=== PATIENT | female | born 1955 | race Caucasian/White ===

== ENCOUNTER → 2020-04-26 15:25 | Outpatient (BNVA) | payer OTHER, SELFPAY | PROVIDERS: PCP Internal Medicine; Visit Provider Surgery ==

== ENCOUNTER 2020-06-14 13:17 | Outpatient (REF) | payer OTHER, SELFPAY ==
[2020-06-14 15:25] LABS: Blood Urea Nitrogen 15 mg/dL (9-16); Creatinine Clr Calc Pharmacy 69.1; Estimated Glomerular Filt Rate > 60
== END 2020-06-14 13:18 | disposition home or self-care (01) ==
LOC: HO.LAB 13:17
PROVIDERS: PCP Internal Medicine; Visit Provider Surgery
DX: R10.30 Lower abdominal pain, unspecified (principal)
CPT/HCPCS: 36415; 82565; 84520

== ENCOUNTER 2020-07-21 08:55 | Outpatient (REF) | payer OTHER, SELFPAY ==
--- NOTE | ~2020-07-21 | US_ITS ---
EXAMINATION: US BILATERAL INGUINAL, LIMITED/FOLLOW UP CLINICAL INFORMATION: Lower abdominal pain. COMPARISON: None. TECHNIQUE: Limited imaging through the right and left inguinal regions as well as below the umbilical was performed. FINDINGS: Imaging through the inguinal region and lower abdominal wall reveals no evidence of hernia. There is active bowel peristalsis noted. US/US pelvic limited IMPRESSION: No evidence of inguinal hernia.
== END 2020-07-21 08:56 | disposition home or self-care (01) ==
LOC: HO.US 08:55
PROVIDERS: Visit Provider Surgery
DX: R10.30 Lower abdominal pain, unspecified (principal); G89.18 Other acute postprocedural pain
CPT/HCPCS: 76857

== ENCOUNTER 2020-07-30 13:05 | Outpatient (REF) | payer OTHER, SELFPAY | END 2020-07-30 13:06 | disposition home or self-care (01) | LOC: HO.LAB 13:05 | PROVIDERS: PCP Internal Medicine; Visit Provider Surgery | DX: Z13.89 Encounter for screening for other disorder (principal) ==

== ENCOUNTER 2020-08-06 07:46 | Outpatient (REF) | payer OTHER, SELFPAY ==
[2020-07-30 15:42] LABS: Blood Urea Nitrogen 11 mg/dL (9-16); Estimated Glomerular Filt Rate > 60
--- NOTE | ~2020-08-06 | CT_ITS ---
EXAMINATION: CT ABDOMEN AND PELVIS WITH CONTRAST CLINICAL INFORMATION: Lower abdominal pain COMPARISON: None TECHNIQUE: Multidetector volumetric images were obtained from the superior aspect of the liver through the pubic symphysis following administration 85 mL of Omnipaque 350 intravenous contrast. Sagittal and coronal reformatted images were obtained on the technologist's workstation. Oral contrast: No This CT examination was performed using dose optimization techniques as appropriate, variously including the following: *Automated exposure control *Adjustment of mA and/or kV according to patient size (this includes techniques or standardized protocols for targeted exams where dose is matched to indication/reason for exam; i.e. extremities or head) *Use of iterative reconstruction technique DLP: 333 mGy-cm FINDINGS: LUNG BASES: The visualized lung bases are unremarkable. LIVER, GALLBLADDER, AND BILIARY TREE: There are multiple hypoattenuating liver lesions, many of which measures simple fluid density and are compatible with cysts. In addition, there may be some smaller septated cysts, and additional lesions that are too small to characterize. At the posteromedial aspect of the right hepatic lobe, there is a heterogeneous hyperattenuating region with central hypoattenuation which may represent a focally dilated duct or grouping of cysts. Overall, this measures approximately 3.4 x 2.4 x 3.9 cm and is of uncertain etiology. This may be an atypical hemangioma. The gallbladder is unremarkable with no evidence of radiopaque gallstones, gallbladder wall thickening, or obvious pericholecystic inflammatory changes. PANCREAS: Unremarkable. SPLEEN: Unremarkable. ADRENAL GLANDS: Unremarkable. KIDNEYS AND URETERS: The kidneys are normal in size, shape, and attenuation. No hydronephrosis, hydroureter, or calculi seen. No perinephric stranding. BLADDER: The urinary bladder appears thick-walled, either due to underdistention or inflammation. GASTROINTESTINAL TRACT: There is circumferential wall thickening of the distal sigmoid and rectum which may be inflammatory. There is a small amount of free pelvic fluid, prominent in the left inguinal region. No peripherally enhancing fluid collection. No free intraperitoneal air. ABDOMINAL WALL: No significant hernia is appreciated. LYMPH NODES: Normal. VASCULAR: Unremarkable. PELVIC VISCERA: Enlarged heterogeneous prostate. OSSEOUS STRUCTURES: Unremarkable. CT/CT abdomen pelvis w con IMPRESSION: Circumferential wall thickening of the distal sigmoid/rectum. Correlate clinically for evidence of colitis/proctitis. No obstruction. The urinary bladder wall appears diffusely thickened possibly representing cystitis. Consider correlation with a urinalysis. There is a heterogeneous lesion in the liver which may represent a hemangioma, possibly a vascular malformation, with central region of hypoattenuation. There are numerous hepatic cysts, and several lesions that are too small to characterize. Further evaluation with a dynamic liver MRI is recommended. Enlarged, heterogeneous prostate.
[2020-08-06] MEDS: iohexoL 350 MG/ML 100 ML INFUS..BTL IV (08:40)
== END 2020-08-06 07:47 | disposition home or self-care (01) ==
LOC: HO.CT 07:46
PROVIDERS: Visit Provider Surgery
DX: R10.30 Lower abdominal pain, unspecified (principal)
CPT/HCPCS: 36415; 74177; 82565; 84520; Q9967

== ENCOUNTER → 2020-08-11 15:41 | Outpatient (BNVA) | payer OTHER, SELFPAY | PROVIDERS: PCP Internal Medicine; Visit Provider Surgery ==